=== PATIENT | male | born 1950 | race Hispanic/Latino ===

== ENCOUNTER 2016-04-10 19:32 | Emergency (ER) | payer MEDICARE ==
[2016-04-11] MEDS ORDERED: XYLOCAINE 1% 20 mL INFILTRATI ONE (00:15)
--- NOTE | 2016-04-11 00:17 | XRay Report ---
FINAL REPORT EXAM: XR HAND 1V RT HISTORY: Rt pinky finger injury TECHNIQUE: One view of the right hand. PRIORS: 12/24/2015 FINDINGS: Single AP view of the right hand shows a mildly angulated fracture at the proximal shaft of the proximal phalanx of digit 5. [place] lateral angulation. No dislocation seen. Overlying soft tissue swelling. No obvious articular extension on this limited study. IMPRESSION: 1. Fracture of the proximal phalanx without obvious articular extension on this limited study.
--- NOTE | 2016-04-11 00:25 | Emergency Department Report ---
ED Upper Extremity Inj HPI - General Chief Complaint: Extremity Injury, Upper Stated Complaint: FINGER INJURY Time Seen by Provider: 04/11/16 00:13 Source: patient Mode of arrival: Ambulatory Limitations: No Limitations - History of Present Illness Initial Comments: 65-year-old male comes in for right finger pain. Patient reports that he was hurrying and tripped over a hose and fell and hurt his right pinky finger. Patient complains of swelling and pain. He reports that he is not able to move the finger. 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 He is a former smoker. - Related Data Previous Rx's Medication Instructions Recorded Last Taken Type Prochlorperazine [Compazine] 10 mg PO Q6H PRN #30 tablet 02/08/16 Unknown Rx oxyCODONE /ACETAMINOPHEN [Percocet 1 tab PO Q6HR PRN #20 tablet 04/11/16 Unknown Rx 5/325] Allergies Allergy/AdvReac Type Severity Reaction Status Date / Time No Known Allergies Allergy Unverified 09/16/15 16:10 ED Review of Systems ROS: Stated complaint: FINGER INJURY Other details as noted in HPI Constitutional: no symptoms reported Musculoskeletal: joint swelling, arthralgia ED Past Medical Hx - Past Medical History Hx Hypertension: No Hx CVA: No Hx Heart Attack/AMI: No Hx Congestive Heart Failure: No Hx Diabetes: No Hx Deep Vein Thrombosis: No Hx Pulmonary Embolism: No Hx GERD: No Hx Liver Disease: No Hx Renal Disease: No Hx Sickle Cell Disease: No Hx Arthritis: No Hx Headaches / Migraines: No Hx Seizures: No Hx Kidney Stones: No Hx Psychiatric Treatment: No Hx Asthma: No Hx COPD: No Hx Tuberculosis: No Hx Dementia: No Hx HIV: No - Surgical History Past Surgical History?: Yes Hx Coronary Stent: No Hx Open Heart Surgery: No Hx Pacemaker: No Hx Internal Defibrillator: No Hx Cholecystectomy: No Hx Appendectomy: No Hx Breast Surgery: No Additional Surgical History: spleenectomy 2-3 mths ago - Social History Smoking Status: Former Smoker Substance Use Type: None - Medications Home Medications: Home Medications Medication Instructions Recorded Confirmed Last Taken Type Prochlorperazine [Compazine] 10 mg PO Q6H PRN #30 tablet 02/08/16 Unknown Rx oxyCODONE /ACETAMINOPHEN [Percocet 1 tab PO Q6HR PRN #20 tablet 04/11/16 Unknown Rx 5/325] ED Physical Exam - General Limitations: No Limitations - Head Head exam: Present: atraumatic, normocephalic - Eye Eye exam: Present: normal appearance - ENT ENT exam: Present: mucous membranes moist - Expanded Upper Extremity Exam Right Hand Wrist exam: Present: tenderness (right fifth digit), swelling (right fifth digit), deformity (right fifth digit), dislocation (right fifth digit ecchymotic ). Absent: full ROM (right fifth digit) ED Course Vital Signs 04/10/16 20:12 Temperature 98.1 F Pulse Rate 82 Blood Pressure 136/88 O2 Sat by Pulse 97 Oximetry ED Medical Decision Making - Radiology Data Radiology results: image reviewed FINAL REPORT EXAM: XR HAND 1V RT HISTORY: Rt pinky finger injury TECHNIQUE: One view of the right hand. PRIORS: 12/24/2015 FINDINGS: Single AP view of the right hand shows a mildly angulated fracture at the proximal shaft of the proximal phalanx of digit 5. [place] lateral angulation. No dislocation seen. Overlying soft tissue swelling. No obvious articular extension on this limited study. IMPRESSION: 1. Fracture of the proximal phalanx without obvious articular extension on this limited study. Transcribed By: FLORENTINO Dictated By: GLENN FRAGOSO MD Electronically Authenticated By: GLENN FRAGOSO MD Signed Date/Time: 04/11/16 0115 - Medical Decision Making He says been evaluated by this provider. Digital block is placed in the patient 's right fifth digit patient tolerated the procedure well with assistance with Dr. Carrillo manipulation of the carpal bone to the correct alignment was completed. Recommend patient to follow-up in orthopedic in one week. Ulnar gutter placed by paramedics. Critical care attestation.: If time is entered above; I have spent that time in minutes in the direct care of this critically ill patient, excluding procedure time. ED Disposition Clinical Impression: Boxers fracture Qualifiers: Encounter type: initial encounter Fracture type: closed Qualified Code(s): S62.309A - Unspecified fracture of unspecified metacarpal bone, initial encounter for closed fracture Disposition: DISCHARGED TO HOME OR SELFCARE Is pt being admited?: No Does the pt Need Aspirin: No Condition: Stable Instructions: Boxer Fracture (ED) Additional Instructions: Very importantly to follow up with orthopedics within a week. Wear the splint at all times take the pain medication when necessary for pain. Prescriptions: oxyCODONE /ACETAMINOPHEN [Percocet 5/325] 1 tab PO Q6HR PRN #20 tablet PRN Reason: Pain Referrals: PRIMARY CAREMD [Primary Care Provider] - 3-5 Days NUVIA DONOVAN MD [Staff Physician] - 3-5 Days CHERY MOLINA MD [Staff Physician] - 3-5 Days Forms: Work/School Release Form(ED)
[2016-04-11] MEDS ORDERED: MOTRIN PO ONE (00:31)
[2016-04-11 01:33] VITALS: BP 130/77
== END 2016-04-11 01:32 | disposition home or self-care (01) ==
LOC: ED 19:32
DX: S62.616A Displaced fracture of proximal phalanx of right little finger, initial encounter for closed fracture (principal); W01.0XXA Fall on same level from slipping, tripping and stumbling without subsequent striking against object, initial encounter; Y93.9 Activity, unspecified; Y92.9 Unspecified place or not applicable; Y99.9 Unspecified external cause status

== ENCOUNTER 2016-06-11 12:38 | Emergency (ER) | payer MEDICARE ==
[2016-06-11] MEDS ORDERED: LEVAQUIN 500MG/100ML 500 MG/100 ML BAG IV ONE (13:57)
[2016-06-11] MEDS ORDERED: NACL 0.9% 1000 ML 1,000 ML IV ONE (13:57)
[2016-06-11] MEDS ORDERED: BOOSTRIX IM ONE (13:57)
--- NOTE | 2016-06-11 13:58 | Emergency Department Report ---
HPI - General Chief Complaint: Extremity Injury, Lower Time Seen by Provider: 06/11/16 13:43 ED Past Medical Hx - Past Medical History Previous Medical History?: No Hx Hypertension: No Hx CVA: No Hx Heart Attack/AMI: No Hx Congestive Heart Failure: No Hx Diabetes: No Hx Deep Vein Thrombosis: No Hx Pulmonary Embolism: No Hx GERD: No Hx Liver Disease: No Hx Renal Disease: No Hx Sickle Cell Disease: No Hx Arthritis: No Hx Headaches / Migraines: No Hx Seizures: No Hx Kidney Stones: No Hx Psychiatric Treatment: No Hx Asthma: No Hx COPD: No Hx Tuberculosis: No Hx Dementia: No Hx HIV: No - Surgical History Past Surgical History?: Yes Hx Coronary Stent: No Hx Open Heart Surgery: No Hx Pacemaker: No Hx Internal Defibrillator: No Hx Cholecystectomy: No Hx Appendectomy: No Hx Breast Surgery: No Additional Surgical History: spleenectomy - Social History Smoking Status: Former Smoker Substance Use Type: Alcohol - Medications Home Medications: Home Medications Medication Instructions Recorded Confirmed Last Taken Type Prochlorperazine [Compazine] 10 mg PO Q6H PRN #30 tablet 02/08/16 Unknown Rx oxyCODONE /ACETAMINOPHEN [Percocet 1 tab PO Q6HR PRN #20 tablet 04/11/16 Unknown Rx 5/325] ED Review of Systems ROS: Stated complaint: RT KNEE SWOLLEN /RT FOOT LACERATION Other details as noted in HPI Physical Exam - Physical Exam Vital Signs: Vital Signs 06/11/16 12:42 Temperature 97.8 F Pulse Rate 68 Respiratory 18 Rate Blood Pressure 144/98 O2 Sat by Pulse 99 Oximetry ED Course Vital Signs 06/11/16 12:42 Temperature 97.8 F Pulse Rate 68 Respiratory 18 Rate Blood Pressure 144/98 O2 Sat by Pulse 99 Oximetry Critical care attestation.: If time is entered above; I have spent that time in minutes in the direct care of this critically ill patient, excluding procedure time. ED Disposition Condition: Stable
[2016-06-11 14:27] LABS: Alanine Aminotransferase 18 units/L (7-56); Albumin 3.6 g/dL (3.9-5); Albumin/Globulin Ratio 0.9 %; Alkaline Phosphatase 65 units/L (35-129); Anion Gap 16 mmol/L; BUN/Creatinine Ratio 22.85; Bilirubin,Total 0.7 mg/dL (0.1-1.2); Blood Urea Nitrogen 16 mg/dL (9-20); Calcium 8.5 mg/dL (8.4-10.2); Carbon Dioxide 24 mmol/L (22-30); Glucose 115 mg/dL (75-100); Potassium 4.1 mmol/L (3.6-5.0); Sodium 139 mmol/L (137-145); Total Protein 7.5 g/dL (6.3-8.2)
[2016-06-11 14:32] LABS: Basophils % (Auto) 0.9 % (0.0-1.8); Eosinophils % (Auto) 1.4 % (0.0-4.3); Hematocrit 39.9 % (35.5-45.6); Hemoglobin 13.4 gm/dl (11.8-15.2); Mean Corpuscular HGB Conc 34 % (32-34); Mean Corpuscular Hemoglobin 32 pg (28-32); Mean Corpuscular Volume 94 fl (84-94); Platelet Count 173 K/mm3 (140-440); Red Blood Count 4.27 M/mm3 (3.65-5.03); Red Cell Distribution Width 16.8 % (13.2-15.2); White Blood Count 6.7 K/mm3 (4.5-11.0)
--- NOTE | 2016-06-11 14:32 | Emergency Department Report ---
ED Head Trauma HPI - General Chief complaint: Extremity Injury, Lower Stated complaint: RT KNEE SWOLLEN /RT FOOT LACERATION Time Seen by Provider: 06/11/16 13:43 Source: patient Mode of arrival: Ambulatory Limitations: No Limitations - History of Present Illness Initial comments: Patient arrives to the ER today complaining of right knee pain and right foot pain. Patient states he stepped on a nail 3 or 4 days ago and now his right foot is starting to hurt and swell ,patient also states he woke this morning with a very painful swollen right knee and is not sure how he injured it. Patient also has 2 black eyes that he awoke with this morning is not sure how he got those. Patient states he drinks 2-3 beers a day. the last thing he remembers last night is going to bed. Patient denies any recent injuries or falls. The only injury he does remember is stepping on a nail 3 days ago. Denies any chest pain, confusion, slurred speech, weakness or dizziness. MD Complaint: head injury -: unknown Mechanism of Injury: unsure Location: face Loss of Consciousness: no Radiation: none Severity scale (0 -10): 6 Quality: aching Other Injuries: eye(s), other (right foot and knee) Associated Symptoms: amnesia. denies: confusion, vision changes, nausea, vomiting, vertigo, syncope, weakness, tingling, neck pain - Related Data Previous Rx's Medication Instructions Recorded Last Taken Type Prochlorperazine [Compazine] 10 mg PO Q6H PRN #30 tablet 02/08/16 Unknown Rx oxyCODONE /ACETAMINOPHEN [Percocet 1 tab PO Q6HR PRN #20 tablet 04/11/16 Unknown Rx 5/325] Ciprofloxacin HCl [Ciprofloxacin 500 mg PO BID #20 tablet 06/11/16 Unknown Rx TAB] Ibuprofen [Motrin] 600 mg PO Q8H PRN #15 tablet 06/11/16 Unknown Rx Allergies/Adverse reactions: Allergies Allergy/AdvReac Type Severity Reaction Status Date / Time No Known Allergies Allergy Unverified 09/16/15 16:10 ED Review of Systems ROS: Stated complaint: RT KNEE SWOLLEN /RT FOOT LACERATION Other details as noted in HPI Constitutional: denies: chills, fever, malaise Eyes: denies: eye pain, vision change ENT: denies: ear pain Respiratory: denies: cough, orthopnea, shortness of breath, SOB with exertion, SOB at rest, stridor Cardiovascular: denies: chest pain, palpitations, dyspnea on exertion, orthopnea , edema, syncope, paroxysmal nocturnal dyspnea Gastrointestinal: denies: abdominal pain, nausea, vomiting, diarrhea, constipation, hematemesis, melena, hematochezia Genitourinary: denies: dysuria, frequency, hematuria Musculoskeletal: joint swelling, arthralgia Skin: denies: rash Neurological: denies: headache, numbness, paresthesias, confusion, vertigo Psychiatric: denies: anxiety, depression, auditory hallucinations, visual hallucinations, homicidal thoughts, suicidal thoughts ED Past Medical Hx - Past Medical History Previous Medical History?: No Hx Hypertension: No Hx CVA: No Hx Heart Attack/AMI: No Hx Congestive Heart Failure: No Hx Diabetes: No Hx Deep Vein Thrombosis: No Hx Pulmonary Embolism: No Hx GERD: No Hx Liver Disease: No Hx Renal Disease: No Hx Sickle Cell Disease: No Hx Arthritis: No Hx Headaches / Migraines: No Hx Seizures: No Hx Kidney Stones: No Hx Psychiatric Treatment: No Hx Asthma: No Hx COPD: No Hx Tuberculosis: No Hx Dementia: No Hx HIV: No - Surgical History Past Surgical History?: Yes Hx Coronary Stent: No Hx Open Heart Surgery: No Hx Pacemaker: No Hx Internal Defibrillator: No Hx Cholecystectomy: No Hx Appendectomy: No Hx Breast Surgery: No Additional Surgical History: spleenectomy - Social History Smoking Status: Former Smoker Substance Use Type: Alcohol - Medications Home Medications: Home Medications Medication Instructions Recorded Confirmed Last Taken Type Prochlorperazine [Compazine] 10 mg PO Q6H PRN #30 tablet 02/08/16 Unknown Rx oxyCODONE /ACETAMINOPHEN [Percocet 1 tab PO Q6HR PRN #20 tablet 04/11/16 Unknown Rx 5/325] Ciprofloxacin HCl [Ciprofloxacin 500 mg PO BID #20 tablet 06/11/16 Unknown Rx TAB] Ibuprofen [Motrin] 600 mg PO Q8H PRN #15 tablet 06/11/16 Unknown Rx ED Physical Exam - General Limitations: No Limitations General appearance: alert, in no apparent distress - Head Head exam: Present: other (bilateral periorbital ecchymosis) - Expanded Head Exam Expanded Head exam: Present: abrasion (forehead), contusion, hematoma, racoon eyes. Absent: bradley's sign, general tenderness, tenderness of temporal artery, CSF rhinorrhea, CSF otorrhea - Eye Eye exam: Present: PERRL, EOMI. Absent: scleral icterus Pupils: Present: normal accommodation - ENT ENT exam: Present: normal orophraynx, mucous membranes moist, TM's normal bilaterally, normal external ear exam - Neck Neck exam: Present: normal inspection, full ROM. Absent: tenderness, meningismus, lymphadenopathy - Respiratory Respiratory exam: Present: normal lung sounds bilaterally. Absent: respiratory distress, wheezes, rales, rhonchi, chest wall tenderness - Cardiovascular Cardiovascular Exam: Present: regular rate, normal rhythm - GI/Abdominal GI/Abdominal exam: Present: soft. Absent: distended, tenderness, guarding, rebound, rigid - Extremities Exam Extremities exam: Present: normal capillary refill - Expanded Lower Extremity Exam Right Knee exam: Present: tenderness, swelling, ecchymosis, effusion. Absent: full ROM (pain and significant swelling restricts range of motion and limits exam), deformity, dislocation, erythema Lower Leg exam: Absent: tenderness, swelling, erythema, palpable cord, Karen's sign Foot/Toe exam: Present: tenderness, swelling, erythema Neuro vascular tendon exam: Present: no vascular compromise. Absent: pulse deficit, abnormal cap refill, sensory deficit, extremity cold to touch Gait: Positive: observed and limited by pain 1 - Puncture wound 2 - Erythema - Back Exam Back exam: Present: normal inspection. Absent: CVA tenderness (R), CVA tenderness (L), vertebral tenderness - Neurological Exam Neurological exam: Present: alert, oriented X3, CN II-XII intact - Psychiatric Psychiatric exam: Present: normal affect, normal mood - Skin Skin exam: Present: warm, dry. Absent: rash, pallor ED Course Vital Signs 06/11/16 12:42 Temperature 97.8 F Pulse Rate 68 Respiratory 18 Rate Blood Pressure 144/98 O2 Sat by Pulse 99 Oximetry - Reevaluation(s) Reevaluation #1: 06/11/16 15:53 Patient resting comfortably in room awake alert and oriented normal vitals receiving IV antibiotics. Discussed labs and findings with patient and advised him that he would be discharged and to come back in 48 hours for recheck of puncture wound of his foot. Patient expressed understanding of these and agreed to come back in 2 days for recheck. - Lab Data Result diagrams: 06/11/16 13:59 06/11/16 13:59 Lab Results 06/11/16 06/11/16 06/11/16 Range/Units 13:59 13:59 13:59 WBC 6.7 (4.5-11.0) K/mm3 RBC 4.27 (3.65-5.03) M/mm3 Hgb 13.4 (11.8-15.2) gm/dl Hct 39.9 (35.5-45.6) % MCV 94 (84-94) fl MCH 32 (28-32) pg MCHC 34 (32-34) % RDW 16.8 H (13.2-15.2) % Plt Count 173 (140-440) K/mm3 Lymph % (Auto) 26.2 (13.4-35.0) % Dewitt % (Auto) 15.3 H (0.0-7.3) % Eos % (Auto) 1.4 (0.0-4.3) % Baso % (Auto) 0.9 (0.0-1.8) % Lymph # 1.8 (1.2-5.4) K/mm3 [place]itt # 1.0 H (0.0-0.8) K/mm3 Eos # 0.1 (0.0-0.4) K/mm3 Baso # 0.1 (0.0-0.1) K/mm3 Seg Neutrophils % 56.2 (40.0-70.0) % Seg Neutrophils # 3.8 (1.8-7.7) K/mm3 ESR 18 (0-20) mm/Hr Sodium 139 (137-145) mmol/L Potassium 4.1 (3.6-5.0) mmol/L Chloride 103.0 (98-107) mmol/L Carbon Dioxide 24 (22-30) mmol/L Anion Gap 16 mmol/L BUN 16 (9-20) mg/dL Creatinine 0.7 L (0.8-1.5) mg/dL Estimated GFR > 60 ml/min BUN/Creatinine Ratio 22.85 % Glucose 115 H (75-100) mg/dL Calcium 8.5 (8.4-10.2) mg/dL Magnesium (1.7-2.3) mg/dL Total Bilirubin 0.7 (0.1-1.2) mg/dL AST 36 (5-40) units/L ALT 18 (7-56) units/L Alkaline Phosphatase 65 (35-129) units/L Total Creatine Kinase (55-170) units/L C-Reactive Protein (0.00-1.30) mg/dL Total Protein 7.5 (6.3-8.2) g/dL Albumin 3.6 L (3.9-5) g/dL Albumin/Globulin Ratio 0.9 % Plasma/Serum Alcohol < 0.01 (0-0.07) gm% 06/11/16 06/11/16 Range/Units 13:59 14:04 WBC (4.5-11.0) K/mm3 RBC (3.65-5.03) M/mm3 Hgb (11.8-15.2) gm/dl Hct (35.5-45.6) % MCV (84-94) fl MCH (28-32) pg MCHC (32-34) % RDW (13.2-15.2) % Plt Count (140-440) K/mm3 Lymph % (Auto) (13.4-35.0) % [place] % (Auto) (0.0-7.3) % Eos % (Auto) (0.0-4.3) % Baso % (Auto) (0.0-1.8) % Lymph # (1.2-5.4) K/mm3 [place]itt # (0.0-0.8) K/mm3 Eos # (0.0-0.4) K/mm3 Baso # (0.0-0.1) K/mm3 Seg Neutrophils % (40.0-70.0) % Seg Neutrophils # (1.8-7.7) K/mm3 ESR (0-20) mm/Hr Sodium (137-145) mmol/L Potassium (3.6-5.0) mmol/L Chloride (98-107) mmol/L Carbon Dioxide (22-30) mmol/L Anion Gap mmol/L BUN (9-20) mg/dL Creatinine (0.8-1.5) mg/dL Estimated GFR ml/min BUN/Creatinine Ratio % Glucose (75-100) mg/dL Calcium (8.4-10.2) mg/dL Magnesium 2.1 (1.7-2.3) mg/dL Total Bilirubin (0.1-1.2) mg/dL AST (5-40) units/L ALT (7-56) units/L Alkaline Phosphatase (35-129) units/L Total Creatine Kinase 332 H (55-170) units/L C-Reactive Protein 0.10 (0.00-1.30) mg/dL Total Protein (6.3-8.2) g/dL Albumin (3.9-5) g/dL Albumin/Globulin Ratio % Plasma/Serum Alcohol (0-0.07) gm% - EKG Data EKG shows normal: sinus rhythm Rate: normal Interpretation: no acute changes - Radiology Data Radiology results: report reviewed No acute findings on CT of face head neck. X-rays of foot and right knee were normal. - Medical Decision Making The patient is unable to account for some of his injuries is ,awake alert and oriented answering all questions, with normal behavior. Patient states he will get his antibiotics filled and return for recheck of his puncture wound which is the more serious concern at this point. Critical care attestation.: If time is entered above; I have spent that time in minutes in the direct care of this critically ill patient, excluding procedure time. ED Disposition Clinical Impression: Puncture wound of plantar aspect of foot, Head injury without fracture of skull , Contusion of knee, right Disposition: DISCHARGED TO HOME OR SELFCARE Is pt being admited?: No Condition: Stable Instructions: Puncture Wound (ED), Concussion (ED) Prescriptions: Ciprofloxacin HCl [Ciprofloxacin TAB] 500 mg PO BID #20 tablet Ibuprofen [Motrin] 600 mg PO Q8H PRN #15 tablet PRN Reason: Pain Referrals: PRIMARY CARE, [Primary Care Provider] - 3-5 Days GLENN MANCIA MD, PHD [Staff Physician] - 3-5 Days
[2016-06-11 14:54] LABS: Erythrocyte Sedimentation Rate 18 mm/Hr (0-20)
[2016-06-11 15:12] LABS: C-Reactive Protein 0.1 mg/dL (0.00-1.30)
--- NOTE | 2016-06-11 15:27 | XRay Report ---
Right knee: Trauma, pain. There is marked thickening of the soft tissues anterior to the knee consistent with a hematoma extending from the distal femur to the proximal tibia. There may be a small joint effusion. There is no fracture. The joint appears aligned and the joint spaces are preserved. The bones are well-mineralized. Impression: Soft tissue injury/hematoma.
--- NOTE | 2016-06-11 15:29 | XRay Report ---
Right foot: Puncture wound. There is no foreign body or puncture wound identified. The bones and joint structures appear unremarkable. No swelling. Impression: Normal exam.
--- NOTE | 2016-06-11 15:35 | Cat Scan Report ---
Cranial CT without contrast. History: Headache after trauma. Findings: There is no evidence of acute hemorrhage or infarct. The ventricles are normal. The posterior fossa is normal. There are no masses or extra-axial collections. Mild cortical atrophy is present. Calvarium is intact. Impression: No acute findings.
--- NOTE | 2016-06-11 15:37 | Cat Scan Report ---
CT of the cervical spine. History: Neck pain after trauma. Findings: There is no evidence of fracture or subluxation. Mild spondylosis is seen in the lower cervical spine. Facet joint arthropathy is seen at multiple levels especially on the left lower cervical spine. The odontoid is intact. Impression: No acute findings.
--- NOTE | 2016-06-11 15:39 | Cat Scan Report ---
CT of the facial bones. History: Facial trauma with pain. Findings: There is no evidence of fracture or other acute findings. No air-fluid levels are seen within the paranasal sinuses. There is nasal septal deviation to the right. Impression: No acute findings.
[2016-06-11 17:19] VITALS: BP 151/84
== END 2016-06-11 17:17 | disposition home or self-care (01) ==
LOC: ED 12:38
DX: S09.90XA Unspecified injury of head, initial encounter (principal); S91.331A Puncture wound without foreign body, right foot, initial encounter; S80.01XA Contusion of right knee, initial encounter; W50.0XXA Accidental hit or strike by another person, initial encounter; Y93.89 Activity, other specified; Y99.8 Other external cause status; Y92.89 Other specified places as the place of occurrence of the external cause
CPT/HCPCS: 36415; 70450; 70486; 72125; 73562; 73630; 80053; 82550; 83735; 85025; 85652; 86140; 90471; 90715; 93005; 93010; 96365; 99284; G0480; J1956; J7030; 80320

== ENCOUNTER 2016-06-24 14:17 | Emergency (ER) | payer MEDICARE ==
--- NOTE | 2016-06-24 15:17 | Emergency Department Report ---
Entered by ELVIA PAT, acting as scribe for DAVID RODRIGUEZ NP. Chief Complaint: Extremity Injury, Lower Stated Complaint: KNEE PAIN/SWELLING Time Seen by Provider: 06/24/16 14:55 - HPI History of Present Illness: 66 y/o male presents c/o of right knee pain/swelling that started 2 weeks ago. Pt was seen here for similar Sx. Pt states swelling went down before reappearing. He also notes taking motrin with no relief. - ROS Review of Systems: +right knee pain +right knee swelling - Exam Vital Signs: Vital Signs 06/24/16 14:52 Temperature 98.4 F Pulse Rate 75 Respiratory 18 Rate Blood Pressure 114/79 O2 Sat by Pulse 96 Oximetry Physical Exam: PT with ant R knee swelling MSE screening note: Focused history and physical exam performed. Due to findings the following was ordered: xr ED Disposition for MSE Condition: Stable This documentation as recorded by the scribeADILIA RYAN,accurately reflects the service I personally performed and the decisions made by ,DAVID RODRIGUEZ , SANDHYA.
--- NOTE | 2016-06-24 16:33 | XRay Report ---
XRAY RIGHT KNEE THREE VIEWS: 06/24/16 14:17:00 CLINICAL: Right patellar pain after fall 2 weeks ago. FINDINGS: Mild osteopenia. No fracture or dislocation. Patellofemoral joint arthritis with narrowing of the joint space and small superior and inferior osteophytes. A large degree of prepatellar soft tissue swelling extends superiorly and inferiorly from the patella. No joint effusion. The medial and lateral joint spaces are normal. No fracture or dislocation. IMPRESSION: 1. Marked prepatellar soft tissue swelling.2. Moderate patellofemoral joint arthritis but no fracture or dislocation of the patella.
[2016-06-24] MEDS ORDERED: TORADOL IM ONE (18:47)
--- NOTE | 2016-06-24 18:55 | Emergency Department Report ---
ED Lower Extremity HPI - General Chief Complaint: Extremity Injury, Lower Stated Complaint: KNEE PAIN/SWELLING Time Seen by Provider: 06/24/16 14:55 Source: patient Mode of arrival: Ambulatory Limitations: No Limitations - History of Present Illness Initial Comments: This is a 66-year-old male that presents with right knee pain and swelling that started 2 weeks ago. Nontoxic or ill appearance. No signs of distress.. Patient was seen here and was prescribed antibiotics. Patient is unaware of what kind of antibiotics was prescribed. Patient stated takes [id number] Motrin with no relief. Denies any numbness or tingling sensation in the extremities. Denies any calf tenderness. 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 Patient denies any trauma to the area. Denies fall. Patient denies any recent travels or long car rides. Patient described pain as aching and throbbing. Pain level out of 10. During the time when the patient was prescribed antibiotics patient stated that it subsided and now came back. Patient stated has normal gait. Denies any chest pain shortness of breath numbness or tingling. MD Complaint: knee injury (right knee) -: Gradual, week(s) (2) Injury: Knee: Right (patellar pain) Severity: mild Severity scale (0 -10): 6 Improves With: NSAID Worsens With: movement, palpation Associated Symptoms: swelling, ambulatory. denies: snap/pop sensation, numbness , tingling, unable to bear weight, able to partially bear weight - Related Data Previous Rx's Medication Instructions Recorded Last Taken Type Prochlorperazine [Compazine] 10 mg PO Q6H PRN #30 tablet 02/08/16 Unknown Rx oxyCODONE /ACETAMINOPHEN [Percocet 1 tab PO Q6HR PRN #20 tablet 04/11/16 Unknown Rx 5/325] Ciprofloxacin HCl [Ciprofloxacin 500 mg PO BID #20 tablet 06/11/16 Unknown Rx TAB] Ibuprofen [Motrin] 600 mg PO Q8H PRN #15 tablet 06/11/16 Unknown Rx Cephalexin [Keflex] 500 mg PO 4XD 5 Days 06/24/16 Unknown Rx Naproxen [Naprosyn TAB] 500 mg PO BID PRN 7 Days 06/24/16 Unknown Rx Prednisone [predniSONE] 40 mg PO QDAY 5 Days 06/24/16 Unknown Rx Allergies Allergy/AdvReac Type Severity Reaction Status Date / Time No Known Allergies Allergy Unverified 09/16/15 16:10 ED Review of Systems ROS: Stated complaint: KNEE PAIN/SWELLING Other details as noted in HPI Constitutional: denies: chills, fever Eyes: denies: eye pain, eye discharge, vision change ENT: denies: ear pain, throat pain Respiratory: denies: cough, shortness of breath, wheezing Cardiovascular: denies: chest pain, palpitations Endocrine: no symptoms reported Gastrointestinal: denies: abdominal pain, nausea, diarrhea Genitourinary: denies: urgency, dysuria Musculoskeletal: denies: back pain, joint swelling, arthralgia Skin: denies: rash, lesions Neurological: denies: headache, weakness, paresthesias Psychiatric: denies: anxiety, depression Hematological/Lymphatic: denies: easy bleeding, easy bruising ED Past Medical Hx - Past Medical History Hx Hypertension: No Hx CVA: No Hx Heart Attack/AMI: No Hx Congestive Heart Failure: No Hx Diabetes: No Hx Deep Vein Thrombosis: No Hx Pulmonary Embolism: No Hx GERD: No Hx Liver Disease: No Hx Renal Disease: No Hx Sickle Cell Disease: No Hx Arthritis: No Hx Headaches / Migraines: No Hx Seizures: No Hx Kidney Stones: No Hx Psychiatric Treatment: No Hx Asthma: No Hx COPD: No Hx Tuberculosis: No Hx Dementia: No Hx HIV: No - Surgical History Past Surgical History?: Yes Hx Coronary Stent: No Hx Open Heart Surgery: No Hx Pacemaker: No Hx Internal Defibrillator: No Hx Cholecystectomy: No Hx Appendectomy: No Hx Breast Surgery: No Additional Surgical History: spleenectomy - Social History Smoking Status: Never Smoker Substance Use Type: None - Medications Home Medications: Home Medications Medication Instructions Recorded Confirmed Last Taken Type Prochlorperazine [Compazine] 10 mg PO Q6H PRN #30 tablet 02/08/16 Unknown Rx oxyCODONE /ACETAMINOPHEN [Percocet 1 tab PO Q6HR PRN #20 tablet 04/11/16 Unknown Rx 5/325] Ciprofloxacin HCl [Ciprofloxacin 500 mg PO BID #20 tablet 06/11/16 Unknown Rx TAB] Ibuprofen [Motrin] 600 mg PO Q8H PRN #15 tablet 06/11/16 Unknown Rx Cephalexin [Keflex] 500 mg PO 4XD 5 Days 06/24/16 Unknown Rx Naproxen [Naprosyn TAB] 500 mg PO BID PRN 7 Days 06/24/16 Unknown Rx Prednisone [predniSONE] 40 mg PO QDAY 5 Days 06/24/16 Unknown Rx ED Physical Exam - General Limitations: No Limitations General appearance: alert, in no apparent distress - Head Head exam: Present: atraumatic, normocephalic - Eye Eye exam: Present: normal appearance - ENT ENT exam: Present: mucous membranes moist - Neck Neck exam: Present: normal inspection - Respiratory Respiratory exam: Present: normal lung sounds bilaterally. Absent: respiratory distress - Cardiovascular Cardiovascular Exam: Present: regular rate, normal rhythm. Absent: systolic murmur, diastolic murmur, rubs, gallop - GI/Abdominal GI/Abdominal exam: Present: soft, normal bowel sounds - Rectal Rectal exam: Present: deferred - Extremities Exam Extremities exam: Present: normal inspection - Expanded Lower Extremity Exam Right Hip exam: Present: normal inspection, full ROM. Absent: tenderness, swelling Upper Leg exam: Present: normal inspection, full ROM. Absent: tenderness Knee exam: Present: normal inspection, full ROM, tenderness, swelling, effusion , full knee extension. Absent: abrasion, laceration, ecchymosis, deformity, crepidus, erythema, pain w/ pronation/supination, posterior draw sign, pain/ laxity with valgus, pain/laxity with varus Lower Leg exam: Present: full ROM. Absent: tenderness, swelling Ankle exam: Present: normal inspection, full ROM. Absent: tenderness, swelling Foot/Toe exam: Present: normal inspection, full ROM. Absent: tenderness, swelling Neuro vascular tendon exam: Present: no vascular compromise Gait: Positive: observed and normal - Back Exam Back exam: Present: normal inspection, full ROM. Absent: tenderness, CVA tenderness (R), CVA tenderness (L) - Neurological Exam Neurological exam: Present: alert, oriented X3, CN II-XII intact, normal gait - Psychiatric Psychiatric exam: Present: normal affect, normal mood - Skin Skin exam: Present: warm, dry, intact, normal color. Absent: rash ED Course Vital Signs 06/24/16 14:52 Temperature 98.4 F Pulse Rate 75 Respiratory 18 Rate Blood Pressure 114/79 O2 Sat by Pulse 96 Oximetry - Reevaluation(s) Reevaluation #1: 06/24/16 19:03 Dr. Black evaluated patient. Agrees to treatment plan and d/c. 06/24/16 19:20 Reevaluated patient pain. Patient has pain 2 out of 10 now. ED Lower Extremity MDM - Medical Decision Making Ed course: 66-year-old male that presents with right patellar pain and swelling x2 weeks 1- X-ray results: marked prepatellar soft tissue swelling. Moderate patellofemoral joint arthritis but no fracture or dislocation of the patella. 2- patient received Toradol IM. Patient tolerate well. This pain level has decreased significantly as per patient. 3- Dr. Black reevaluated patient and agrees to treatment plan and d/c instructions. 4- I instructed the patient to [place] 5- instructed patient to take antibiotics and prednisone as prescribed. 6- KIMBER badge applied to area. Denies numbness or tingling noted. 7- -instructed patient to follow up with orthopedic doctor in 3-5 days. 8- instructed patient to wear kneepads all working. 9- Educated patient to perform quadriceps-strengthening exercise. 10-at the time of discharge the patient is toxic or ill appearance. Patient received discharge plan. No further questions noted at this time. Critical care attestation.: If time is entered above; I have spent that time in minutes in the direct care of this critically ill patient, excluding procedure time. ED Disposition Clinical Impression: Bursitis, knee Qualifiers: Laterality: right Qualified Code(s): M70.51 - Other bursitis of knee, right knee Disposition: DISCHARGED TO HOME OR SELFCARE Is pt being admited?: No Does the pt Need Aspirin: No Condition: Stable Instructions: Naproxen (By mouth), Knee Bursitis (ED) Additional Instructions: Follow-up with her primary care and orthopedic doctor in 3-5 days. If symptoms worsen please report back to emergency room. Rest, elevate, ice to affected extremity. Perform quadricpes-strengthening exercises as instructed Prescriptions: Cephalexin [Keflex] 500 mg PO 4XD 5 Days Naproxen [Naprosyn TAB] 500 mg PO BID PRN 7 Days PRN Reason: Pain Prednisone [predniSONE] 40 mg PO QDAY 5 Days Referrals: PRIMARY CAREMD [Primary Care Provider] - 3-5 Days DAE CEVALLOS MD [Staff Physician] - 3-5 Days [facility] [Outside] - 3-5 Days [facility] [Outside] - 3-5 Days
[2016-06-24 19:44] VITALS: BP 146/83
== END 2016-06-24 19:44 | disposition home or self-care (01) ==
LOC: ED 14:17
DX: M70.51 Other bursitis of knee, right knee (principal); X58.XXXA Exposure to other specified factors, initial encounter; Y93.89 Activity, other specified; Y99.9 Unspecified external cause status; Y92.89 Other specified places as the place of occurrence of the external cause
CPT/HCPCS: 73564; 96372; 99283; J1885

== ENCOUNTER 2017-01-24 11:21 | Emergency (ER) | payer MEDICARE ==
[2017-01-24 12:05] LABS: Basophils % (Auto) 1.1 % (0.0-1.8); Eosinophils % (Auto) 3.2 % (0.0-4.3); Hematocrit 37.5 % (35.5-45.6); Hemoglobin 12.2 gm/dl (11.8-15.2); Mean Corpuscular HGB Conc 33 % (32-34); Mean Corpuscular Hemoglobin 33 pg (28-32); Mean Corpuscular Volume 101 fl (84-94); Platelet Count 149 K/mm3 (140-440); White Blood Count 7.5 K/mm3 (4.5-11.0)
[2017-01-24 12:13] LABS: INR 1.04 (0.87-1.13)
[2017-01-24 12:14] LABS: Partial Thromboplastin Time 31.3 Sec. (24.2-36.6)
[2017-01-24 12:15] LABS: Alanine Aminotransferase 42 units/L (7-56); Albumin 3.1 g/dL (3.9-5); Albumin/Globulin Ratio 0.9 %; Alkaline Phosphatase 42 units/L (35-129); Anion Gap 18 mmol/L; BUN/Creatinine Ratio 17; Blood Urea Nitrogen 15 mg/dL (9-20); Calcium 8.2 mg/dL (8.4-10.2); Carbon Dioxide 23 mmol/L (22-30); Glucose 241 mg/dL (75-100); Lipase 51 units/L (13-60); Sodium 132 mmol/L (137-145); Total Protein 6.5 g/dL (6.3-8.2)
--- NOTE | 2017-01-24 15:34 | Emergency Department Report ---
ED GI Bleed HPI - General Chief complaint: GI Bleed Stated complaint: BLOOD IN STOOL Time Seen by Provider: 01/24/17 15:32 Source: patient Mode of arrival: Ambulatory Limitations: No Limitations - History of Present Illness Initial comments: Patient describes blood admixed with stool of onset yesterday. He states he had a moderate amount today but no clots. He denies any signs of melena. He denies abdominal pain to be the study was bloated at triage. He denies nausea or vomiting. He states immediately that he is not inclined to stay in the hospital. MD complaint: gross hematochezia -: days(s) Quality: other (bloating no pain) Consistency: intermittent, now resolved Improves with: none Worsens with: none Context: other (took some aspirin yesterday) Associated Symptoms: denies other symptoms - Related Data Previous Rx's Medication Instructions Recorded Last Taken Type Prochlorperazine [Compazine] 10 mg PO Q6H PRN #30 tablet 02/08/16 Unknown Rx oxyCODONE /ACETAMINOPHEN [Percocet 1 tab PO Q6HR PRN #20 tablet 04/11/16 Unknown Rx 5/325] Ciprofloxacin HCl [Ciprofloxacin 500 mg PO BID #20 tablet 06/11/16 Unknown Rx TAB] Ibuprofen [Motrin] 600 mg PO Q8H PRN #15 tablet 06/11/16 Unknown Rx Cephalexin [Keflex] 500 mg PO 4XD 5 Days capsule 06/24/16 Unknown Rx Naproxen [Naprosyn TAB] 500 mg PO BID PRN 7 Days tablet 06/24/16 Unknown Rx Prednisone [predniSONE] 40 mg PO QDAY 5 Days tab 06/24/16 Unknown Rx Allergies Allergy/AdvReac Type Severity Reaction Status Date / Time No Known Allergies Allergy Verified 01/24/17 11:31 ED Review of Systems ROS: Stated complaint: BLOOD IN STOOL Other details as noted in HPI Constitutional: denies: chills, fever Eyes: denies: eye pain, eye discharge, vision change ENT: denies: ear pain, throat pain Respiratory: denies: cough, shortness of breath, wheezing Cardiovascular: denies: chest pain, palpitations Endocrine: no symptoms reported Gastrointestinal: as per HPI, hematochezia. denies: nausea, diarrhea Genitourinary: denies: urgency, dysuria Musculoskeletal: denies: back pain, joint swelling, arthralgia Skin: denies: rash, lesions Neurological: denies: headache, weakness, paresthesias Psychiatric: denies: anxiety, depression Hematological/Lymphatic: denies: easy bleeding, easy bruising ED Past Medical Hx - Past Medical History Hx Hypertension: No Hx CVA: No Hx Heart Attack/AMI: No Hx Congestive Heart Failure: No Hx Diabetes: No Hx Deep Vein Thrombosis: No Hx Pulmonary Embolism: No Hx GERD: No Hx Liver Disease: No Hx Renal Disease: No Hx Sickle Cell Disease: No Hx Arthritis: No Hx Headaches / Migraines: No Hx Seizures: No Hx Kidney Stones: No Hx Psychiatric Treatment: No Hx Asthma: No Hx COPD: No Hx Tuberculosis: No Hx Dementia: No Hx HIV: No - Surgical History Hx Coronary Stent: No Hx Open Heart Surgery: No Hx Pacemaker: No Hx Internal Defibrillator: No Hx Cholecystectomy: No Hx Appendectomy: No Hx Breast Surgery: No Additional Surgical History: spleenectomy - Social History Smoking Status: Never Smoker Substance Use Type: Alcohol - Medications Home Medications: Home Medications Medication Instructions Recorded Confirmed Last Taken Type Prochlorperazine [Compazine] 10 mg PO Q6H PRN #30 tablet 02/08/16 Unknown Rx oxyCODONE /ACETAMINOPHEN [Percocet 1 tab PO Q6HR PRN #20 tablet 04/11/16 Unknown Rx 5/325] Ciprofloxacin HCl [Ciprofloxacin 500 mg PO BID #20 tablet 06/11/16 Unknown Rx TAB] Ibuprofen [Motrin] 600 mg PO Q8H PRN #15 tablet 06/11/16 Unknown Rx Cephalexin [Keflex] 500 mg PO 4XD 5 Days capsule 06/24/16 Unknown Rx Naproxen [Naprosyn TAB] 500 mg PO BID PRN 7 Days tablet 06/24/16 Unknown Rx Prednisone [predniSONE] 40 mg PO QDAY 5 Days tab 06/24/16 Unknown Rx ED Physical Exam - General Limitations: No Limitations General appearance: alert, in no apparent distress - Head Head exam: Present: atraumatic, normocephalic - Eye Eye exam: Present: normal appearance - ENT ENT exam: Present: normal exam, mucous membranes moist - Neck Neck exam: Present: normal inspection - Respiratory Respiratory exam: Present: normal lung sounds bilaterally. Absent: respiratory distress - Cardiovascular Cardiovascular Exam: Present: normal rhythm, tachycardia (borderline tachycardic at 103). Absent: systolic murmur, diastolic murmur, rubs, gallop - GI/Abdominal GI/Abdominal exam: Present: soft, normal bowel sounds. Absent: distended, tenderness, guarding, rebound, rigid - Rectal Rectal exam: Present: normal rectal tone, other (no mass or tenderness. Minimal blood on digital exam.) - Extremities Exam Extremities exam: Present: normal inspection - Back Exam Back exam: Present: normal inspection - Neurological Exam Neurological exam: Present: alert, oriented X3, CN II-XII intact. Absent: motor sensory deficit - Psychiatric Psychiatric exam: Present: normal affect, normal mood - Skin Skin exam: Present: warm, dry, intact, normal color. Absent: rash ED Course Vital Signs 01/24/17 01/24/17 01/24/17 11:31 13:35 15:42 Temperature 97.7 F 97.7 F Pulse Rate 122 H 97 H 110 H Respiratory 16 18 15 Rate Blood Pressure 172/80 Blood Pressure 114/77 [Left] O2 Sat by Pulse 95 95 96 Oximetry 01/24/17 15:45 Temperature Pulse Rate 97 H Respiratory 24 Rate Blood Pressure 114/77 Blood Pressure [Left] O2 Sat by Pulse 96 Oximetry - Reevaluation(s) Reevaluation #1: I explained to the patient I will prefer that he comes in the hospital for a workup. He also states that he is asplenic. I explained to him that he must be vaccinated for example the Prevnar for pneumococcus and that his condition may take quite some time to work up as an outpatient. He understands the risks and benefits to include substantial bleeding and associated complications. He states that he is off Thursday and would like to address this as an outpatient. Therefore he will be referred to GI and a primary care physician neither of which he currently has. 01/24/17 15:55 ED Medical Decision Making - Lab Data Result diagrams: 01/24/17 11:40 01/24/17 11:40 Laboratory Results - last 24 hr 01/24/17 01/24/17 01/24/17 11:40 11:40 11:40 WBC 7.5 RBC 3.70 Hgb 12.2 Hct 37.5 MCV 101 H MCH 33 H MCHC 33 RDW 15.0 Plt Count 149 Lymph % (Auto) 30.3 [place] % (Auto) 13.2 H Eos % (Auto) 3.2 Baso % (Auto) 1.1 Lymph # 2.3 [place] # 1.0 H Eos # 0.2 Baso # 0.1 Seg Neutrophils % 52.2 Seg Neutrophils # 3.9 PT 14.1 INR 1.04 APTT 31.3 Sodium 132 L Potassium 4.0 Chloride 95.0 L Carbon Dioxide 23 Anion Gap 18 BUN 15 Creatinine 0.9 Estimated GFR > 60 BUN/Creatinine Ratio 17 Glucose 241 H Calcium 8.2 L Total Bilirubin 0.90 AST 53 H ALT 42 Alkaline Phosphatase 42 Total Protein 6.5 Albumin 3.1 L Albumin/Globulin Ratio 0.9 Lipase 51 Blood Type Antibody Screen 01/24/17 11:42 WBC RBC Hgb Hct MCV MCH MCHC RDW Plt Count Lymph % (Auto) [place] % (Auto) Eos % (Auto) Baso % (Auto) Lymph # [place] # Eos # Baso # Seg Neutrophils % Seg Neutrophils # PT INR APTT Sodium Potassium Chloride Carbon Dioxide Anion Gap BUN Creatinine Estimated GFR BUN/Creatinine Ratio Glucose Calcium Total Bilirubin AST ALT Alkaline Phosphatase Total Protein Albumin Albumin/Globulin Ratio Lipase Blood Type A NEGATIVE Antibody Screen Negative Critical care attestation.: If time is entered above; I have spent that time in minutes in the direct care of this critically ill patient, excluding procedure time. ED Disposition Clinical Impression: Rectal bleeding, History of splenectomy Disposition: TO HOME OR SELFCARE Is pt being admited?: No Does the pt Need Aspirin: No Condition: Stable Instructions: Rectal Bleeding (ED) Additional Instructions: I have advised you that I recommend that you come in the hospital for evaluation of this condition. Rectal bleeding baby due to many causes. Significant bleeding can occur and be associated with serious complications or even . He may return to the emergency department at any time you desire further evaluation. Certainly, return if you have any more substantial bleeding. I am going to refer you to her primary care doctor (Tito Selby) and a GI specialist group. Do not take aspirin do not drink alcohol but do not take any [id number] medicines for arthritis such as ibuprofen. In addition as I have explained you need the pneumonia vaccine as soon as possible if you have never had any vaginal bleeding removed. Referrals: PRIMARY CARE, [Primary Care Provider] - 3-5 Days TITO SELBY MD [Staff Physician] - 2-3 Days [facility] [Provider Group] - 2-3 Days Forms: Accompanied Note Time of Disposition: 16:01
[2017-01-24 17:48] VITALS: BP 114/73
== END 2017-01-24 17:10 | disposition home or self-care (01) ==
LOC: ED 11:21
DX: K62.5 Hemorrhage of anus and rectum (principal); Z90.81 Acquired absence of spleen
CPT/HCPCS: 36415; 80053; 83690; 85025; 85610; 85730; 86850; 86900; 86901; 93005; 93010

== ENCOUNTER 2018-12-27 15:20 | Emergency (ER) | payer MEDICARE ==
--- NOTE | 2018-12-27 15:55 | Emergency Department Report ---
Blank Doc - Documentation Documentation: 68-year-old male that presents with left forearm abscess. This initial assessment/diagnostic orders/clinical plan/treatment(s) is/are subject to change based on patient's health status, clinical progression and re- assessment by fellow clinical providers in the ED. Further treatment and workup at subsequent clinical providers discretion. Patient/guardians urged not to elope from the ED as their condition may be serious if not clinically assessed and managed. Initial orders include: 1- Patient sent to [facility] for further evaluation and treatment 2-I/D
[2018-12-27] MEDS ORDERED: XYLOCAINE 2% INFILTRATI STA (19:26)
[2018-12-27] MEDS ORDERED: NORCO 5/325 PO STA (19:26)
[2018-12-27] MEDS ORDERED: NACL 0.9% IR STA (19:27)
--- NOTE | 2018-12-27 20:42 | Emergency Department Report ---
Abscess Boil HPI - HPI Chief Complaint: Skin/Abscess/Foreign Body Stated Complaint: LFT ARM BOIL PAIN Time Seen by Provider: 12/27/18 15:54 Duration: 3 Days Location: Upper Extremity Severity: Mild History: Yes Pain, Yes Purulent Drainage, Yes Insect Bite, No Fever, No N umbness, No Foreign Body, No Previous History Home Medications: Previous Rx's Medication Instructions Recorded Last Taken Type Prochlorperazine [Compazine] 10 mg PO Q6H PRN #30 tablet 02/08/16 Unknown Rx oxyCODONE /ACETAMINOPHEN [Percocet 1 tab PO Q6HR PRN #20 tablet 04/11/16 Unknown Rx 5/325] Ciprofloxacin HCl [Ciprofloxacin 500 mg PO BID #20 tablet 06/11/16 Unknown Rx TAB] Ibuprofen [Motrin] 600 mg PO Q8H PRN #15 tablet 06/11/16 Unknown Rx Cephalexin [Keflex] 500 mg PO 4XD 5 Days capsule 06/24/16 Unknown Rx Naproxen [Naprosyn TAB] 500 mg PO BID PRN 7 Days tablet 06/24/16 Unknown Rx predniSONE 40 mg PO QDAY 5 Days tab 06/24/16 Unknown Rx Mupirocin [Bactroban 2%] 15 applic TP TID #15 gm 12/27/18 Unknown Rx Sulfamethoxazole/Trimethoprim 2 each PO BID #40 tablet 12/27/18 Unknown Rx [Bactrim DS TAB] cephALEXin [Keflex] 500 mg PO Q6HR #40 capsule 12/27/18 Unknown Rx Allergies/Adverse Reactions: Allergies Allergy/AdvReac Type Severity Reaction Status Date / Time No Known Allergies Allergy Verified 01/24/17 11:31 ED Review of Systems ROS: Stated complaint: LFT ARM BOIL PAIN Other details as noted in HPI Comment: All other systems reviewed and negative ED Past Medical Hx - Past Medical History Previous Medical History?: No Hx Hypertension: No Hx CVA: No Hx Heart Attack/AMI: No Hx Congestive Heart Failure: No Hx Diabetes: No Hx Deep Vein Thrombosis: No Hx Pulmonary Embolism: No Hx GERD: No Hx Liver Disease: No Hx Renal Disease: No Hx Sickle Cell Disease: No Hx Arthritis: No Hx Headaches / Migraines: No Hx Seizures: No Hx Kidney Stones: No Hx Psychiatric Treatment: No Hx Asthma: No Hx COPD: No Hx Tuberculosis: No Hx Dementia: No Hx HIV: No - Surgical History Past Surgical History?: Yes Hx Coronary Stent: No Hx Open Heart Surgery: No Hx Pacemaker: No Hx Internal Defibrillator: No Hx Cholecystectomy: No Hx Appendectomy: No Hx Breast Surgery: No Additional Surgical History: spleenectomy - Social History Smoking Status: Never Smoker Substance Use Type: Alcohol - Medications Home Medications: Home Medications Medication Instructions Recorded Confirmed Last Taken Type Prochlorperazine [Compazine] 10 mg PO Q6H PRN #30 tablet 02/08/16 Unknown Rx oxyCODONE /ACETAMINOPHEN [Percocet 1 tab PO Q6HR PRN #20 tablet 04/11/16 Unknown Rx 5/325] Ciprofloxacin HCl [Ciprofloxacin 500 mg PO BID #20 tablet 06/11/16 Unknown Rx TAB] Ibuprofen [Motrin] 600 mg PO Q8H PRN #15 tablet 06/11/16 Unknown Rx Cephalexin [Keflex] 500 mg PO 4XD 5 Days capsule 06/24/16 Unknown Rx Naproxen [Naprosyn TAB] 500 mg PO BID PRN 7 Days tablet 06/24/16 Unknown Rx predniSONE 40 mg PO QDAY 5 Days tab 06/24/16 Unknown Rx Mupirocin [Bactroban 2%] 15 applic TP TID #15 gm 12/27/18 Unknown Rx Sulfamethoxazole/Trimethoprim 2 each PO BID #40 tablet 12/27/18 Unknown Rx [Bactrim DS TAB] cephALEXin [Keflex] 500 mg PO Q6HR #40 capsule 12/27/18 Unknown Rx ED Abscess Boil Physical Exam - Exam General: Vital signs noted. No distress. Alert and acting appropriately. Front/Back of Body, Lg (Color): 1 - Abscess to this region. Fluctuant tender Size: 4 cm Exam: Yes Tenderness, Yes Fluctuance, Yes Surrounding Cellulites/Erythema, Yes Normal Neurologic Exam, Yes Normal Circulation, No Lymphangitis, No Crepitation, No Heart Murmur I & D Note - I & D Note I & D Note: Wound was prepped and draped in sterile fashion anesthesia was achieved with 2% lidocaine with no epinephrine. #11 blade was used to make T incision into the abscess is bloody purulent drainage was evacuated. Wound was irrigated with saline and packed with iodoform packing. ED Course Vital Signs 12/27/18 12/27/18 15:27 15:54 Temperature 99.4 F 98.2 F Pulse Rate 101 H 101 H Respiratory 16 18 Rate Blood Pressure 114/74 114/74 O2 Sat by Pulse 94 100 Oximetry Critical care attestation.: If time is entered above; I have spent that time in minutes in the direct care of this critically ill patient, excluding procedure time. ED Disposition Clinical Impression: Abscess Disposition: DC-01 TO HOME OR SELFCARE Is pt being admited?: No Does the pt Need Aspirin: No Condition: Stable Instructions: Insect Bite or Sting (ED), Brown Recluse Spider Bite (ED), Abscess Incision and Drainage (ED), Abscess (ED) Additional Instructions: Please return for wound reevaluation in 48-72 hours. Please remove packing in 24 hours. He may sit in a hot tub of water soak the wound and then removed the packing and discarding a plastic bag into the trashcan.. Take the medication as prescribed Prescriptions: Sulfamethoxazole/Trimethoprim [Bactrim DS TAB] 2 each PO BID #40 tablet Mupirocin [Bactroban 2%] 15 applic TP TID #15 gm cephALEXin [Keflex] 500 mg PO Q6HR #40 capsule Referrals: PRIMARY CARE, [Primary Care Provider] - 3-5 Days [facility] [Provider Group] - 3-5 Days
[2018-12-27 21:06] VITALS: BP 131/85
== END 2018-12-27 21:04 | disposition home or self-care (01) ==
LOC: ED 15:20
DX: L02.414 Cutaneous abscess of left upper limb (principal); Z79.899 Other long term (current) drug therapy; Z98.890 Other specified postprocedural states

== ENCOUNTER 2019-12-02 08:09 | Emergency (ER) | payer MEDICARE ==
[2019-12-02 08:19] VITALS: BP 155/80
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
== END 2019-12-02 11:08 | disposition home or self-care (01) ==
LOC: ED 08:09
DX: S61.011A Laceration without foreign body of right thumb without damage to nail, initial encounter (principal); Z90.89 Acquired absence of other organs; Z98.890 Other specified postprocedural states; Z79.1 Long term (current) use of non-steroidal anti-inflammatories (NSAID); Z79.2 Long term (current) use of antibiotics; Z79.899 Other long term (current) drug therapy; W26.0XXA Contact with knife, initial encounter; Y93.89 Activity, other specified; Y92.89 Other specified places as the place of occurrence of the external cause; Y99.8 Other external cause status
CPT/HCPCS: 99281